=== PATIENT | male | born 1975 | race Two or more races ===

== ENCOUNTER 2023-01-22 16:29 | Emergency (ER) | payer MEDICAID ==
[~2023-01-22] VITALS: Ht 167.6 cm; Wt 69.9 kg
[2023-01-22] MEDS: Thiamine 100 MG in IV D5W 50 ML IV SCH (16:35)
[2023-01-22] MEDS ORDERED: CHLORDIAZEPOXIDE HCL 25 MG CAPSULE PO ONE (17:00)
[2023-01-22] MEDS ORDERED: IV NS 0.9% 1,000 ML BAG IV ONE ×3 (17:00→22:30)
[2023-01-22] MEDS ORDERED: LORAZEPAM INJ 2 MG/ML VIAL IV ONE ×3 (17:00→23:00)
[2023-01-22] MEDS ORDERED: LEVETIRACETAM (500MG) 500 MG in IV NS 0.9% 100 ML IV ONE (17:00)
[2023-01-22] MEDS ORDERED: LORAZEPAM 1 MG TABLET PO ONE (17:00)
[2023-01-22 17:14] LABS: BASOPHILS % (AUTO) 0.3 % (0.0-2.0); EOSINOPHILS % (AUTO) 0.1 % (0.0-6.0); HEMATOCRIT 44 % (39-51); HEMOGLOBIN 14.9 g/dL (13.5-17.5); LYMPHOCYTES # (AUTO) 1.9 K/uL (0.8-4.8); LYMPHOCYTES % (AUTO) 33.9 % (20.0-44.0); MEAN CORPUSCULAR HGB CONC 34 g/dl (31.0-36.0); MEAN CORPUSCULAR VOLUME 100 fL (80-96); MONOCYTES # (AUTO) 0.4 K/uL (0.1-1.30); MONOCYTES % (AUTO) 7.9 % (2.0-12.0); NEUTROPHILS # (AUTO) 3.2 K/uL (1.8-8.9); NEUTROPHILS % (AUTO) 57.8 % (43.0-81.0); PLATELET COUNT (AUTO) 240 K/uL (150-450); RED BLOOD CELL COUNT(AUTO) 4.42 MIL/uL (4.5-6.0); WHITE BLOOD COUNT (AUTO) 5.5 K/uL (4.3-11.0)
[2023-01-22] MEDS ORDERED: LEVETIRACETAM SOL (5 ML) 100 MG/ML UDC ONE (17:16)
[2023-01-22] MEDS ORDERED: ONDANSETRON HCL/PF 4 MG/2 ML VIAL ONE (17:16)
[2023-01-22] MEDS ORDERED: CHLORDIAZEPOXIDE HCL 25 MG CAPSULE ONE (17:17)
[2023-01-22] MEDS ORDERED: LORAZEPAM INJ 2 MG/ML VIAL ONE ×3 (17:19→22:48)
[2023-01-22 17:29] LABS: ALANINE AMINOTRANSFERASE 41 U/L (12-78); ALCOHOL, BLOOD 292 mg/dL (0-0); ALKALINE PHOSPHATASE 130 U/L (46-116); ASPARTATE AMINOTRANSFERASE 64 U/L (15-37); BILIRUBIN,DIRECT 0.3 mg/dL (0.0-0.2); BILIRUBIN,TOTAL 0.8 mg/dL (0.2-1.0); CALCIUM, SERUM 8.7 mg/dL (8.5-10.1); CARBON DIOXIDE 21 mmol/L (21-32); CHLORIDE 96 mmol/L (98-107); CREATININE 0.8 mg/dL (0.6-1.3); GLUCOSE 108 mg/dL (74-106); POTASSIUM 3.6 mmol/L (3.5-5.1); SODIUM SERUM 133 mmol/L (136-145); TOTAL PROTEIN, SERUM 8.7 g/dL (6.4-8.2); UREA NITROGEN, BLOOD 4 mg/dL (7-18)
[2023-01-22] MEDS ORDERED: ONDANSETRON HCL/PF - ER 4 MG/2 ML VIAL IV ONE (17:30)
[2023-01-22] MEDS ORDERED: FAMOTIDINE/PF INJ 20 MG/2 ML VIAL IV ONE (17:30)
[2023-01-22] MEDS: Folic acid 1 MG in IV D5W 50 ML IV SCH ×2 (18:00→18:30)
[2023-01-22] MEDS ORDERED: CHLO25CA22 PO (20:08)
--- NOTE | 2023-01-22 21:26 | NUR ---
RECEIVED CALL FROM SILKE FROM LAB. LACTIC ACID 4.0. [facility] MADE AWARE
--- NOTE | 2023-01-22 21:59 | NUR ---
COVID SWAB DONE AND SENT TO LAB
[2023-01-23] MEDS ORDERED: Folic acid 1 MG/0.2 ML VIAL ONE (00:23)
[2023-01-23] MEDS ORDERED: CHLORDIAZEPOXIDE HCL 25 MG CAPSULE ONE ×2 (00:23→01:15)
[2023-01-23] MEDS: Folic acid 1 MG in IV D5W 50 ML IV SCH (00:26)
[2023-01-23] MEDS ORDERED: Thiamine 100 MG/ML VIAL ONE (00:47)
[2023-01-23] MEDS: Thiamine 100 MG in IV D5W 50 ML IV SCH (00:56)
[2023-01-23] MEDS ORDERED: CHLORDIAZEPOXIDE HCL 25 MG CAPSULE PO ONE ×2 (01:30)
--- NOTE | 2023-01-23 02:03 | NUR ---
STILL PENDING WITH REGARDS TO ADMISSION PROCESS AT [facility]
--- NOTE | 2023-01-23 02:55 | NUR ---
STILL PENDING WITH [facility]
--- NOTE | 2023-01-23 03:37 | NUR ---
IV removed. Catheter intact and site benign. Pressure and 4x4 applied to site. No bleeding noted.
--- NOTE | 2023-01-23 03:37 | NUR ---
Patient does not wish to proceed with medical care recommended by Dr. Shaw. Patient given information related to possible complications, up to and including , which could occur as a result of leaving the hospital at this time. Patient verbalizes understanding of risks involved due to leaving against medical advice. Patient has signed AMA form.
[2023-01-23 03:42] VITALS: BP 140/68
== END 2023-01-23 03:42 | disposition left against medical advice (07) ==
LOC: ER 17:21
DX: F13.239 Sedative, hypnotic or anxiolytic dependence with withdrawal, unspecified (principal); F10.239 Alcohol dependence with withdrawal, unspecified; F10.229 Alcohol dependence with intoxication, unspecified; E86.0 Dehydration; G25.1 Drug-induced tremor; R11.2 Nausea with vomiting, unspecified; F19.10 Other psychoactive substance abuse, uncomplicated; D75.89 Other specified diseases of blood and blood-forming organs; R74.8 Abnormal levels of other serum enzymes; R00.0 Tachycardia, unspecified; E87.8 Other disorders of electrolyte and fluid balance, not elsewhere classified; R74.02 Elevation of levels of lactic acid dehydrogenase [LDH]; F17.200 Nicotine dependence, unspecified, uncomplicated; Z20.822 Contact with and (suspected) exposure to COVID-19; Z59.00 Homelessness unspecified; Z79.899 Other long term (current) drug therapy; Y90.8 Blood alcohol level of 240 mg/100 ml or more
CPT/HCPCS: 99291; 96365; 96361; 96366 ×2; 96367; 96375; 93005 ×2; 71045; 96376; 85025; 80048; 87040 ×2; 83605 ×2; 83690; 80076; 36415; 84484 ×2; 87081; 82962; 87426; 80320; 80307; J2060 ×3; J3490 ×2; J2405; J7060 ×4; J7030 ×3; J3411 ×2; A4223; J1953; C9803; G0480